=== PATIENT | male | born 1980 | race Caucasian/White ===

== ENCOUNTER 2018-01-18 12:06 | Observation (INO) | payer OTHER ==
[~2018-01-18] VITALS: Ht 177.8 cm; Wt 92.1 kg
[2018-01-18] MEDS ORDERED: CELEXA40 MG PO (12:13)
[2018-01-18] MEDS ORDERED: SUBOXONE 2 MG-1 EAC1 PO (12:14)
[2018-01-18] MEDS ORDERED: TESTOSTERO200 MG/11 IM (12:14)
[2018-01-18] MEDS ORDERED: CLONAZEPAM 1 MG1 M1 PO (12:15)
[2018-01-18 12:49] LABS: HEMATOCRIT 50.2 % (42.0-52.0); MCV 94.2 fL (80.0-100.0); MPV 8.4 fl. (7.2-11.1); NUCLEATED RBCS 0 /100WBC; PLATELET COUNT* 404 thou/uL (150-400); RBC 5.32 mil/uL (4.50-6.00)
[2018-01-18 13:05] LABS: ANION GAP 7 mmol/L (7-16); BUN 16 mg/dL (7-18); CALCIUM 8.7 mg/dL (8.5-10.1); CHLORIDE 102 mmol/L (98-107); CO2 30 mmol/L (21-32); CREATININE 1.2 mg/dL (0.6-1.3); GLUCOSE 91 mg/dL (70-99); POTASSIUM 4.2 mmol/L (3.5-5.1); SODIUM 139 mmol/L (136-145)
[2018-01-18 13:10] LABS: ALBUMIN 3.8 g/dL (3.4-5.0); ALKALINE PHOSPHATASE 70 U/L (46-116); SGOT 21 U/L (15-37); SGPT 30 U/L (30-65); TOTAL BILIRUBIN 0.9 mg/dL (<0.1-1.0); TOTAL PROTEIN 7.2 g/dL (6.4-8.2); TROPONIN-I LEVEL <0.06 ng/mL (<0.06)
[2018-01-18 13:16] LABS: ABSOLUTE LYMPHOCYTES 1.1 thou/uL (0.8-5.3); ABSOLUTE MONOCYTES 0.3 thou/uL (0.0-1.2); ABSOLUTE NEUTROPHILS 14.6 thou/uL (1.6-8.1); PLATELET ESTIMATE INCREASED
[2018-01-18 14:15] LABS: URINE BILIRUBIN NEGATIVE (Negative); URINE BLOOD NEGATIVE (Negative); URINE CLARITY CLEAR; URINE COLOR YELLOW; URINE GLUCOSE-RANDOM NEGATIVE (Negative); URINE KETONES NEGATIVE (Negative); URINE LEUKOCYTES-REFLEX NEGATIVE (Negative); URINE NITRITE-REFLEX NEGATIVE (Negative); URINE PROTEIN NEGATIVE (Negative); URINE SPECIFIC GRAVITY 1.015 (1.005-1.030); URINE UROBILINOGEN 0.2 E.U./dl (0.2-1.0)
[2018-01-18 15:54] VITALS: BP 114/54
[2018-01-18 16:00] VITALS: BP 114/54
--- NOTE | 2018-01-18 17:37 | EKG ---
[place] [address] ELECTROCARDIOGRAM REPORT Name: GLENDY OLIVERA Room: [address] M.R.#: [id number] Admission: 01/18/18 Attend Phys: Dieudonne Tariq MD Discharge: Date of : 78 Report #: [id number] THIS REPORT FOR: //name// [facility] ED Test Date: 2018-01-18 Test Time: 12:12:23 Pat Name: GLENDY OLIVERA Department: Room: [facility] Gender: M Senior Label Specialist: : 1980 Requested By: Azeb Reeder Order Number: [id number] MD: Mario Hill Measurements Intervals [place] Rate: 61 P: 66 VA: 150 QRS: 74 QRSD: 90 T: 39 QT: 331 QTc: 334 Interpretive Statements Sinus rhythm Multiple premature complexes, supraven LAE, consider biatrial enlargement Short QT interval No previous ECG available for comparison Electronically Signed On 01-18-2018 17:37:31 GAME PRESERVE MANAGER by Mario Hill [email or web address] <ELECTRONICALLY SIGNED> By: Mario Hill MD, [facility] 01/18/18 1737 11 11 Mario Hill MD, [facility] /EPI
--- NOTE | 2018-01-18 17:42 | EKG ---
[place] [address] ELECTROCARDIOGRAM REPORT Name: GLENDY OLIVERA Room: [address]R.#: [id number] Admission: 01/18/18 Attend Phys: Dieudonne Tariq MD Discharge: Date of : 78 Report #: [id number] THIS REPORT FOR: //name// [facility] ED Test Date: 2018-01-18 Test Time: 14:54:38 Pat Name: GLENDY OLIVERA Department: Room: [facility] Gender: Lining Stitcher: Sonia DURAN : 1980 Requested By: Azeb Reeder Order Number: [id number] MD: Mario Hill Measurements Intervals [place] Rate: 92 P: DE: QRS: 43 QRSD: 90 T: 34 QT: 334 QTc: 414 Interpretive Statements sinus rhythm with pac's and aberancy Baseline wander in lead(s) V3 Electronically Signed On 01-18-2018 17:41:58 SENIOR SOFTWARE QA ENGINEER by Mario Hill [email or web address] <ELECTRONICALLY SIGNED> By: Mario Hill MD, [facility] 01/18/18 1741 1454 1454 Mario Hill MD, FAC /EPI
[2018-01-18 20:00] VITALS: BP 105/69
[2018-01-19] VITALS: BP 110/70
[2018-01-19 04:00] VITALS: BP 107/64
[2018-01-19 04:33] LABS: ABSOLUTE BASOPHILS 0.1 thou/uL (0.0-0.2); ABSOLUTE EOSINOPHILS 0.5 thou/uL (0.0-0.7); ABSOLUTE LYMPHOCYTES 2.2 thou/uL (0.8-5.3); ABSOLUTE MONOCYTES 1.3 thou/uL (0.0-1.2); ABSOLUTE NEUTROPHILS 7.2 thou/uL (1.6-8.1); EOSINOPHILS 4.5 %; HEMATOCRIT 47.9 % (42.0-52.0); LYMPHOCYTES 19.6 %; MCH 31.5 pg (26.0-34.0); MCHC 33.5 g/dL (28.0-37.0); MCV 94.2 fL (80.0-100.0); MONOCYTES 11.8 %; MPV 9.2 fl. (7.2-11.1); NUCLEATED RBCS 0 /100WBC; PLATELET COUNT* 398 thou/uL (150-400); POLYS 63.1 %; RBC 5.08 mil/uL (4.50-6.00); WBC 11.4 thou/uL (4.0-11.0)
[2018-01-19 04:52] LABS: ANION GAP 7 mmol/L (7-16); BUN 14 mg/dL (7-18); CALCIUM 8.2 mg/dL (8.5-10.1); CHLORIDE 101 mmol/L (98-107); CHOLESTEROL 148 mg/dL (<200); CO2 29 mmol/L (21-32); CREATININE 1.1 mg/dL (0.6-1.3); GLUCOSE 93 mg/dL (70-99); HDL CHOLESTEROL 38 mg/dL (>40); LDL CHOLESTEROL 78 mg/dL (<100); POTASSIUM 3.7 mmol/L (3.5-5.1); SODIUM 137 mmol/L (136-145); TC:HDL 3.9 Ratio (Not establshd); TRIGLYCERIDE 160 mg/dL (<150); VLDL 32 mg/dL (<40)
[2018-01-19 04:57] LABS: SERUM ASSESSMENT CLEAR
[2018-01-19 09:00] VITALS: BP 141/79
[2018-01-19 09:33] VITALS: BP 141/79
[2018-01-19 11:19] VITALS: BP 141/79
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
--- NOTE | 2018-01-19 14:03 | 2DMMODE ---
[place] [address] 2 D/M-MODE ECHOCARDIOGRAM Name: GLENDY OLIVERA Room: [address] Bronson Browning#: [id number] Admission: 01/18/18 Attend Phys: Dieudonne Tariq, Discharge: 01/19/18 Date of : 78 Date of Service: 01/19/18 1402 Report #: [id number] THIS REPORT FOR: //name// APPROVED REPORT Study performed: 01/19/2018 09:25:38 EXAM: Comprehensive 2D, Doppler, and color-flow Echocardiogram Patient Location: In-Patient Room #: [facility] Status: routine BSA: 2.14 HR: 89 bpm BP: 107/64 mmHg Rhythm: NSR Other Information Study Quality: Good Indications Abnormal ECG Palpitations 2D Dimensions IVSd: 13.24 (7-11mm) LVOT Diam: 22.10 (18-24mm) LVDd: 49.07 mm PWd: 10.86 (7-11mm) Ascending Ao: 26.39 (22-36mm) LVDs: 32.55 (25-40mm) Aortic Root: 32.33 mm Volumes Left Atrial Volume (Systole) LA ESV Index: 32.30 mL/m2 Aortic Valve AoV Peak Rusty.: 1.39 m/s AO Peak Gr.: 7.70 mmHg LVOT Max P.73 mmHg AO Mean Gr.: 4.24 mmHg LVOT Mean P.11 mmHg LVOT Max V: 1.09 m/s AO V2 VTI: 26.20 cm LVOT Mean V: 0.65 m/s ELMER (VTI): 3.00 cm2 LVOT V1 VTI: 20.51 cm Mitral Valve E/A Ratio: 1.23 MV Decel. Time: 249.26 [place] [address] 2 D/M-MODE ECHOCARDIOGRAM Name: GLENDY OLIVERA Room: [address]R.#: [id number] Admission: 01/18/18 Attend Phys: Dieudonne Tariq, Discharge: 01/19/18 Date of : 78 Date of Service: 01/19/18 1402 Report #: [id number] MV E Max Rusty.: 0.76 m/s MV PHT: 72.28 ms MVA (PHT): 3.04 cm2 TDI E/Lateral E': 5.43 E/Medial E': 5.85 Medial E' Rusty.: 0.13 m/s Lateral E' Rusty.: 0.14 m/s Pulmonary Valve PV Peak Rusty.: 1.10 m/s PV Peak Gr.: 4.87 mmHg Left Ventricle The left ventricle is normal size. There is normal LV segmental wall motion. There is normal left ventricular wall thickness. Left ventricular systolic function is normal. LVEF is 60-65%. The left ventricular diastolic function is normal. Right Ventricle The right ventricle is normal size. The right ventricular systolic function is normal. Atria The left atrium size is normal. The right atrium size is normal. Aortic Valve The aortic valve is normal in structure. No aortic regurgitation is present. There is no aortic valvular stenosis. Mitral Valve The mitral valve is normal in structure. There is no mitral valve regurgitation noted. No evidence of mitral valve stenosis. Tricuspid Valve The tricuspid valve is normal in structure. Unable to assess PA pressure. Trace tricuspid regurgitation. Pulmonic Valve The pulmonary valve is normal in structure. There is no pulmonic valvular regurgitation. Great Vessels The aortic root is normal in size. IVC is normal in size and collapses >50% [place] [address] 2 D/M-MODE ECHOCARDIOGRAM Name: GLENDY OLIVERA [address]#: [id number] Admission: 01/18/18 Attend Phys: Dieudonne Tariq, Discharge: 01/19/18 Date of : 78 Date of Service: 01/19/18 1402 Report #: [id number] Pericardium There is no pericardial effusion. <Conclusion> The left ventricle is normal size. There is normal left ventricular wall thickness. Left ventricular systolic function is normal. LVEF is 60-65%. The left ventricular diastolic function is normal. IVC is normal in size and collapses >50% with inspiration. <ELECTRONICALLY SIGNED> By: Daniel Adams MD, FACC 01/19/18 140 01 01 Danile Adams MD, FACC /INF
== END 2018-01-19 11:38 | disposition home or self-care (01) ==
LOC: M.ERS 12:06 → M.TBA-ER 15:04 → M.2W 16:14
PROVIDERS: Internal Medicine Cardiovascular Disease; Personal Emergency Response Attendant; ADMIT Internal Medicine
DX: I49.9 Cardiac arrhythmia, unspecified (principal); R53.1 Weakness; R53.83 Other fatigue; I49.1 Atrial premature depolarization; R00.1 Bradycardia, unspecified; F41.9 Anxiety disorder, unspecified; F32.9 Major depressive disorder, single episode, unspecified; I10 Essential (primary) hypertension; E11.9 Type 2 diabetes mellitus without complications; E78.5 Hyperlipidemia, unspecified; F11.11 Opioid abuse, in remission; Z98.890 Other specified postprocedural states; Z79.899 Other long term (current) drug therapy